=== PATIENT | female | born 1980 | race African-American/Black ===

== ENCOUNTER 2019-06-10 07:30 | Emergency (ER) | payer OTHER ==
[2019-06-10] MEDS ORDERED: KETOROLAC TROMETHAMINE 60 MG/2 ML VIAL ONE (09:14)
== END 2019-06-10 10:15 | disposition home or self-care (01) ==
LOC: EDH 07:30
DX: S20.211A Contusion of right front wall of thorax, initial encounter (principal); I10 Essential (primary) hypertension; Z90.49 Acquired absence of other specified parts of digestive tract; W01.0XXA Fall on same level from slipping, tripping and stumbling without subsequent striking against object, initial encounter; Y93.02 Activity, running; Y92.89 Other specified places as the place of occurrence of the external cause; Y99.8 Other external cause status
CPT/HCPCS: 71046; 71100; 81025; 96372; 99285; J1885